=== PATIENT | male | born 1980 | race Hispanic/Latino ===

== ENCOUNTER 2020-06-23 17:02 | Emergency (ER) | payer SELFPAY ==
[2020-06-23] MEDS ORDERED: Dexamethasone 20 MG/5 ML VIAL ONE (17:19)
[2020-06-23] MEDS ORDERED: Ondansetron PF 4 MG/2 ML Vial ONE (17:34)
== END 2020-06-23 18:28 | disposition home or self-care (01) ==
LOC: NAV ERS 17:02
DX: T63.441A Toxic effect of venom of bees, accidental (unintentional), initial encounter (principal)
CPT/HCPCS: 96374; 96375; J1100; J2405